=== PATIENT | male | born 1960 | race Caucasian/White ===

== ENCOUNTER 2022-03-02 14:10 | Emergency (ER) | payer OTHER, SELFPAY ==
[2022-03-02 14:16] VITALS: BP 107/63; PULSE 111; RESP 20; TEMP 36.2; O2SAT 95; BMI 42.3
[2022-03-02 14:48] VITALS: BP 101/59; PULSE 96; TEMP 36.9; O2SAT 93
[2022-03-02 14:51] VITALS: O2SAT 92
[2022-03-02] MEDS: METHYLPREDNISOLONE SOD SUCC 62.5 MG/ML (125) 125 MG IVP (14:57)
--- NOTE | 2022-03-02 15:00 | ED_ITS ---
HPI - General Adult General Date Seen: 03/02/22 Chief complaint: Allergic Reaction Stated complaint: Swollen tongue, can't breathe Time Seen by Provider: 03/02/22 14:21 Source: patient History of Present Illness HPI narrative: Patient is a 61-year-old male who presents with swelling of his tongue. He says that this started about an hour prior to arrival and while he says it started with rapid swelling seems to have somewhat stabilized now. He has some difficulty swallowing but says he is able to breathe without too much difficulty. He says that initially he felt some pain in the back of his tongue but now he does not have any pain. This is never happened before. He does take lisinopril which he has taken for quite some time. He was started on a new medication recently for his prostate, which sounds as if it is tamsulosin, no other new medications. He does not have any itching, wheezing, rashes. Denies chest pain. No lightheadedness or fainting. Does have a pacemaker, he says this was placed due to heart failure and it has not helped per his report. He still has a low ejection fraction which he reports is 30%. Denies current tobacco use. Has a history of alcohol use but denies current. Related Data Home Medications Medication Instructions Recorded Confirmed atorvastatin 40 mg tablet 40 mg PO .bedtime dyslipidemia 03/02/22 03/02/22 bupropion HCl 150 mg 24 hr tablet, 150 mg PO DAILY depression 03/02/22 03/02/22 extended release ferrous gluconate 324 mg (37.5 mg 324 mg PO BID Iron deficiency 03/02/22 03/02/22 iron) tablet ferrous sulfate 325 mg (65 mg 325 mg PO BID 03/02/22 03/02/22 iron) tablet lisinopril 10 mg tablet 10 mg PO DAILY HTN 03/02/22 03/02/22 metoprolol succinate 100 mg 100 mg PO Q12H 03/02/22 03/02/22 tablet,extended release 24 hr metoprolol succinate 25 mg mg PO 03/02/22 tablet,extended release 24 hr omeprazole 20 mg capsule,delayed 20 mg PO Q8H GERD 03/02/22 03/02/22 release sennosides 8.6 mg tablet (Radha-duncan) 8.6 mg PO DAILY 03/02/22 03/02/22 tamsulosin 0.4 mg capsule 0.4 mg PO Q24H BPH 03/02/22 03/02/22 torsemide 20 mg tablet 40 mg PO DAILY 03/02/22 03/02/22 Allergies Allergy/AdvReac Type Severity Reaction Status Date / Time No Known Drug Allergies Allergy Verified 03/02/22 14:15 Review of Systems Status of ROS: Reports: 10 or more systems reviewed and unremarkable except as noted in History and below PFSH PFS Social History Smoking Status: Former smoker What tobacco products do you use: cigarettes Smoking quit date/years: >15 years ago Do you use any of these nicotine containing products: None Second hand tobacco smoke exposure: No How often do you have a drink containing alcohol: 2-3 times a week How many standard drinks containing alcohol do you have on a typical day: 1 or 2 How often do you have six or more drinks on one occasion: Never AUDIT-C Alcohol total score: 3 Non-prescribed substance use: denies use Exam Narrative: Exam Narrative: Vital signs as noted above. In general, an alert, nontoxic male. Easily. Head: Normocephalic, atraumatic. Eyes: Pupils are equal reactive. Extraocular movements are full. Conjunctivae are normal. ENT: Mucous membranes are moist. The left side of his tongue is significantly edematous. He has swelling at the base of the mouth bilaterally. There is no significant erythema, no tenderness. The right side of the tongue is not swollen. I am able to visualize the back of the throat with a tongue depressor, which is normal. Airway is patent. Neck: Supple without lymphadenopathy. No stridor. Heart: Regular rate and rhythm. No murmur or rub. Lungs: Clear bilaterally. No increased work of breathing, crackles or wheezes. Abdomen: Soft and nontender. Obese. Extremities: Well perfused. No edema. No calf tenderness. Pulses intact. Neurologic: Patient is alert and oriented to person and place. Speech is fluent. Face is symmetric. Moves all extremities equally. Affect: Normal. Skin: Warm and dry. Well perfused. Const: Vital Signs, click to edit/add: Vital Signs - 24 hr 03/02/22 14:16 03/02/22 14:48 03/02/22 14:51 Temperature 97.1 F L 98.5 F Pulse Rate [Pulse Oximeter] 111 H 96 Respiratory Rate 20 Blood Pressure [Le ft Upper Arm] 107/63 101/59 L Pulse Oximetry 95 93 92 Oxygen Delivery Me thod Room Air Room Air Documenting provider has reviewed patient's vital signs: yes Course Course Hospital Course: Following initial evaluation, patient was placed in stable 1. He is maintained on monitor and pulse oximetry. I stayed with him for the 1st 15 minutes of his ER course, closely monitoring his tongue and airway. He felt as if this was staying stable. I did not see any increase in swelling of his tongue nor any involvement of the right side of his tongue. For now, I have elected to observe. He was maintained on the monitor and oximetry, and IV was established. I did have respiratory therapy give him of 4% lidocaine neb, in anticipation of possible intubation, so that we could potentially use ketamine and perform an awake intubation, given his body habitus and potential for difficult airway. I also gave him 125 mg of Solu-Medrol IV. We marty up rocuronium and ketamine, in case of possible need for airway management, but over the course of his initial 30 minutes in the ER he felt that his tongue was stable. Thereafter, he steadily improved and by couple hours into his ER stay his tongue was markedly improved. While it was not entirely back to normal, it was nearly symmetrical. He was swallowing without difficulty, speaking with a normal voice and breathing easily. He also had a gag reflex at that time. He was eager to go home. His was with him at that point. I think it is reasonable this time to let him go home. I have reinforced with him that he should no longer be taking lisinopril or any other Derrick inhibitor going forward. He does have a fairly complicated cardiac history. He has an upcoming appointment with his hoist mechanic, and I have asked him to discuss the lisinopril with him and determine whether an alternate medicine needs to be prescribed. His blood pressure has been on the low side here, but I am not sure where his hoist mechanic wants him to be given his ejection fraction. I am going to discharge him on some steroids. Have strongly impressed upon him that if he has any recurrence of these symptoms, he needs to return right away to the emergency department, which he assures me he will. Vital Signs Vital signs: Initial Vital Signs Temperature 97.1 F L 03/02/22 14:16 Temperature Source Temporal Artery Scan 03/02/22 14:16 Pulse Rate 111 H 03/02/22 14:16 Pulse Rhythm 03/02/22 14:16 Respiratory Rate 20 03/02/22 14:16 Blood Pressure 107/63 03/02/22 14:16 Blood Pressure Mean 77 03/02/22 14:16 Pulse Oximetry 95 03/02/22 14:16 Oxygen Delivery Method 03/02/22 14:16 Vital Signs Temperature 97.1 F L 03/02/22 14:16 Pulse Rate 111 H 03/02/22 14:16 Respiratory Rate 20 03/02/22 14:16 Blood Pressure 107/63 03/02/22 14:16 Pulse Oximetry 95 03/02/22 14:16 Oxygen Delivery Method 03/02/22 14:16 Temperature 98.5 F 03/02/22 14:48 Pulse Rate 96 03/02/22 14:48 Respiratory Rate 20 03/02/22 14:16 Blood Pressure 101/59 L 03/02/22 14:48 Pulse Oximetry 92 03/02/22 14:51 Oxygen Delivery Method 03/02/22 14:48 Discharge Plan Discharge Clinical Impression: Angioedema Patient Disposition: Home, Self-Care Condition: Improved Instructions: Angioedema (ED) Additional Instructions: Return immediately if you have any worsening/recurrent severe symptoms. Discontinue your lisinopril, you should not take this medication or any other Derrick inhibitors in the future. Please discuss with your hoist mechanic with the need to take a new medication in place of the lisinopril. Prednisone as prescribed. Prescriptions: No Action atorvastatin 40 mg tablet 40 mg PO .bedtime Label Comments: TAKE 1 TABLET BY MOUTH EVERY DAY bupropion HCl 150 mg tablet extended release 24 hr 150 mg PO DAILY Label Comments: TAKE 1 TABLET BY MOUTH DAILY DIRECTED ferrous gluconate 324 mg (37.5 mg iron) tablet 324 mg PO BID Label Comments: TAKE 1 TABLET BY MOUTH DAILY ferrous sulfate 325 mg (65 mg iron) tablet 325 mg PO BID Label Comments: TAKE 1 TABLET (325 MG) BY MOUTH 2 TIMES DAILY WITH MEALS. lisinopril 10 mg tablet 10 mg PO DAILY Label Comments: TAKE 1 TABLET BY MOUTH EVERY DAY metoprolol succinate 100 mg tablet extended release 24 hr 100 mg PO Q12H Label Comments: TAKE 1 TABLETS EVERY DAY metoprolol succinate 25 mg tablet extended release 24 hr PO Label Comments: TAKE 1 TABLET BY MOUTH EVERY DAY omeprazole 20 mg capsule,delayed release(DR/EC) 20 mg PO Q8H Label Comments: TAKE ONE CAPSULE BY MOUTH EVERY DAY tamsulosin 0.4 mg capsule 0.4 mg PO Q24H Label Comments: TAKE 1 CAPSULE BY MOUTH EVERY NIGHT AT BEDTIME torsemide 20 mg tablet 40 mg PO DAILY Label Comments: TAKE 2 TABLETS EVERY MORNING sennosides [Radha-duncan] 8.6 mg tablet 8.6 mg PO DAILY Follow Up/Referrals: Viktor Nuñez MD [Primary Care Provider] - Stand Alone [facility]: [facility] Info Inst[facility]
--- NOTE | 2022-03-02 15:33 | RESP.RT ---
Spoke with provider about giving pt a lidocaine nebulizer. Pt is here with anaphlaxis. R side of tongue is swollen. Provider reports the back of throat looks normal. Provider would like throat numbed in case intubation is needed. Pt on 1L of oxygen. breathing easy RR 20 SPo2 95 %. BBS decreased and clear. 4cc of 4% lidocaine nebulized. Expect that this should last between 2-3 hours. PT needs to stay at least 4 hours after neb completed. Pt may complain of bitter taste. Pt states his mouth feels numb at this time. Keep Pt sitting up for at least an hour.
[2022-03-02] MEDS: lidocaine HCL 4 % TOP SOLN 50 ML BOTTLE TOPICAL (15:47)
--- NOTE | 2022-03-02 17:35 | ED.NURSE ---
Pt discharged with and knows to come back if he has any concerns tonight with breathing.
--- NOTE | 2022-03-02 17:39 | ED.NURSE ---
Left message with patient and [employer] cell phone to come back to ER to brass pickler Intsymed prescription.
--- NOTE | 2022-03-02 20:43 | ED.NURSE ---
Pt came back for his prednisone prescription and has received instruction on how to take it.
== END 2022-03-02 17:31 | disposition home or self-care (01) ==
PROVIDERS: Emergency Provider Emergency Medicine; PCP Family Medicine
DX: T78.3XXA Angioneurotic edema, initial encounter (principal)
CPT/HCPCS: 94761; 96374; 99284; A9270; J2930

== ENCOUNTER 2022-03-25 11:19 | Emergency (ER) | payer OTHER, SELFPAY ==
[2022-03-25] VITALS (14 sets, daily range): BP systolic 107–144; BP diastolic 63–99; PULSE 95–105; RESP 24; TEMP 36.8; O2SAT 86–99; BMI 39.6
--- NOTE | 2022-03-25 11:37 | CRLHL7_ITS ---
For Patients: As a result of the Century Cures Act, medical imaging exams and procedure reports are released immediately into your electronic medical record. You may view this report before your referring provider. If you have questions, please contact your health care provider. INDICATION: Right-sided abdominal pain TECHNIQUE: CT chest PE, abdomen and pelvis acquired with 100 cc Omnipaque 350 IV contrast. COMPARISON: None. FINDINGS: CHEST: Cardiovascular structures: Prominent heart size. Thoracic aorta and main pulmonary artery are normal in caliber. No sign of pulmonary embolism. Coronary artery calcifications. Mediastinum and joseph: No mass or adenopathy. Lungs and pleura: Lungs and pleural spaces are clear. No infiltrates, or effusions. Re-demonstration of 7 millimeter left upper lobe subpleural pulmonary nodule, mildly increased in size when compared to prior study performed in 2017. Chest wall and axilla: No mass or adenopathy. Left chest wall pacemaking device. Bones: No suspicious bone lesions. Unremarkable for age. ABDOMEN AND PELVIS: Liver: Unremarkable. Gallbladder and bile ducts: Unremarkable. Pancreas: Unremarkable. Spleen: Unremarkable. Adrenal glands: Unremarkable. Kidneys: Unremarkable. GI tract: Large 9.8 x 8.9 x 8.4 centimeter mass arising from the ileocecal region. Colonic diverticulosis without diverticulitis. No bowel obstruction. Vascular structures: Unremarkable. Lymph nodes: Large 8.6 x 7.0 centimeter mass in the ileocecal region, which is contiguous with aforementioned ileocecal mass, possibly continuous metastatic lymphadenopathy. Miscellaneous: Ventral hernia containing a loop of small bowel without obstruction. No free air or significant free fluid. Pelvic Organs: Mildly distended bladder with circumferential wall thickening, which extends superiorly and appears to abut large right ileocecal mass. Bones: No suspicious bone lesions. Unremarkable for age. 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 Mildly distended bladder with circumferential wall thickening, which appears to abut the right lower quadrant ileocecal mass. Fistulous connection not excluded. Recommend correlation with urinalysis. Case discussed with Dr. Christian at 12:44 p.m. on 03/25/2022. No pulmonary embolism, as questioned. Please note that all CT scans at this facility use dose modulation, iterative reconstruction, and/or weight-based dosing when appropriate to reduce radiation dose to as low as reasonably achievable. Dictated by Maxi Caceres MD @ 03/25/2022 2:49:19 PM (Electronically Signed)
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
[2022-03-25 11:49] LABS: HCO3 VBG 40 mmol/L (21-28); PCO2 VBG 58 mmHG (40-50); PO2 VBG 25.5 mmHG (25-47); pH VBG 7.442 (7.32-7.43)
[2022-03-25 11:54] LABS: Basophils Percent Auto 0.2 % (0.0-3.0); Hemoglobin* 10.2 gm/dL (13.5-17.5); Immature Granulocytes Pct Auto 0.3 %; Lymphocytes Percent Auto 6.1 % (20-44); Mean Corpuscular HGB Conc 31 gm/dL (32-36); Mean Corpuscular Hemoglobin 23 pg (26-34); Mean Corpuscular Volume 75 fL (80-100); Monocytes Percent Auto 6.8 % (0.0-11.0); Neutrophils Percent Auto 85.6 % (42.0-72.0); Platelet Count* 434 K/uL (140-440); RDW Coefficient of Variation % 16.6 % (11.5-15.5); Red Blood Count 4.38 m/uL (4.30-5.90); White Blood Count* 12.62 K/uL (4.50-11.00)
[2022-03-25] MEDS: ASPIRIN 81 MG TAB.CHEW 324 MG PO (12:05)
[2022-03-25] MEDS: FUROSEMIDE 10 MG/ML inj 40 MG IV (12:05)
[2022-03-25 12:11] LABS: Prothrombin Time 13.8 Seconds
[2022-03-25 12:12] LABS: Partial Thromboplastin Time* 34 Seconds (23-33)
[2022-03-25 12:14] LABS: D Dimer Quantitative* 3.47 ug/ml (0.00-0.50)
[2022-03-25 12:27] LABS: PCR FLU A Negative PCR FLU A (Negative); PCR FLU B Negative PCR FLU B (Negative); PCR RSV Negative PCR RSV (Negative)
[2022-03-25 12:31] LABS: Slide Review Reflex No
[2022-03-25 12:33] LABS: Albumin* 3.5 g/dL (3.3-5.0); Chloride* 92 mmol/L (96-114)
[2022-03-25 12:34] LABS: Potassium* 3.9 mmol/L (3.6-5.1); Sodium* 136 mmol/L (135-149)
[2022-03-25 12:35] LABS: Appearance Urine Clear (Clear); Bilirubin Urine Negative (Negative); Blood Urine Negative (Negative); Color Urine Yellow (Yellow); Glucose Urine Negative (Negative); Ketones Urine Negative (Negative); Leukocyte Esterase Urine Negative (Negative); Nitrite Urine Negative (Negative); Protein Urine Negative (Negative); Specific Gravity Urine 1.015 (1.000-1.030); Urobilinogen Urine 0.2 (0.2-1.0)
[2022-03-25 12:36] LABS: Creatinine* 1.2 mg/dL (0.5-1.5); Est. Creatinine Clearance* 68.44; Estimated Glomerular Filt Rate 70 ml/min
[2022-03-25 12:37] LABS: Alanine Aminotransferase* 44 U/L (4-50); Alkaline Phosphatase* 172 U/L (40-150); Aspartate Amino Transferase* 34 U/L (12-35); Bilirubin Direct* 0.2 mg/dL (0.0-0.5); Bilirubin Total* 0.5 mg/dL (0.1-1.5); Blood Urea Nitrogen* 26 mg/dL (7-30); Calcium* 8.7 mg/dL (8.4-10.6); Carbon Dioxide* 38 mmol/L (20-32); Glucose* 134 mg/dL (60-115); Lipase* 75 U/L (23-300); Total Protein* 7.2 g/dL (6.0-8.3)
[2022-03-25 12:38] LABS: SARS PCR* Negative SARS-CoV-2 (Negative)
[2022-03-25 12:50] LABS: C Reactive Protein* 15.7 mg/dL (0.5-1.0)
[2022-03-25 12:53] LABS: RBC Urine 0-2 (0-2); WBC Urine 0-2 (0-5)
[2022-03-25 14:08] LABS: NT Pro B Type NatriureticPept* 2570 pg/mL
--- NOTE | 2022-03-25 15:19 | PC.NURSE ---
Patient left AMA. Dr. Christian aware. AMA form signed by patient and Dr. Christian. This health science writer was present for signatures.
[2022-03-25 15:45] LABS: Troponin I* 0.02 ng/mL (0.01-0.04)
== END 2022-03-25 15:16 | disposition left against medical advice (07) ==
PROVIDERS: Emergency Provider Family Medicine; PCP Family Medicine
DX: R10.31 Right lower quadrant pain (principal); Z53.29 Procedure and treatment not carried out because of patient's decision for other reasons; R06.02 Shortness of breath
CPT/HCPCS: 36415; 71260; 74177; 80048; 80076; 81001; 82803; 83605; 83690; 83880; 84484; 85025; 85379; 85610; 85730; 86140; 87040; 87502; 87634; 87635; 93005; 94761; 96374; 99284; 99285; A9270; J1940; Q9967